=== PATIENT | female | born 1985 | race Caucasian/White ===

== ENCOUNTER 2020-10-15 09:37 | Emergency (ER) | payer SELFPAY ==
[~2020-10-15] VITALS: Ht 172.7 cm; Wt 102.7 kg
[~2020-10-15 09:37] MED LIST: DIVA250T4 PO; FLUO20CA19 PO
[2020-10-15 09:57] VITALS: BP 152/81
--- NOTE | 2020-10-15 10:13 | NUR ---
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
--- NOTE | 2020-10-15 10:19 | NUR ---
ER [place] PATTON AT BEDSIDE, PT ASSESSMENT, POC DISCUSSED AND QUESTIONS ANSWERED
[2020-10-15] MEDS ORDERED: KETOROLAC 30 MG/1 ML ONE (10:29)
[2020-10-15] MEDS ORDERED: KETOROLAC 30 MG/1 ML IM ONE (10:30)
--- NOTE | 2020-10-15 10:33 | NUR ---
PT MED NOTED AND THEN AMBULATORY TO RADIOLOGY WITH TECH ESCORT
--- NOTE | 2020-10-15 10:55 | NUR ---
ASSUMED CARE FOR DISCHARGE ONLY Patient given discharge instructions and they have confirmed that they understand the instructions. Patient ambulatory with steady gait.
== END 2020-10-15 11:03 | disposition home or self-care (01) ==
LOC: ED 10:55
DX: S63.502A Unspecified sprain of left wrist, initial encounter (principal); E66.9 Obesity, unspecified; Z68.34 Body mass index [BMI] 34.0-34.9, adult; Z88.0 Allergy status to penicillin; Z79.899 Other long term (current) drug therapy; W01.0XXA Fall on same level from slipping, tripping and stumbling without subsequent striking against object, initial encounter; Y93.89 Activity, other specified; Y92.830 Public park as the place of occurrence of the external cause; Y99.8 Other external cause status
CPT/HCPCS: 29125; 73110; 96372; 99283; J1885